=== PATIENT | male | born 1990 | race African-American/Black ===

== ENCOUNTER 2016-10-21 10:05 | Inpatient (IN) | payer OTHER ==
[~2016-10-21] VITALS: Ht 172.7 cm; Wt 71.6 kg
[~2016-10-21 10:05] MED LIST: AMLODIPINE BESY10 MG PO; AMLODIPINE BESYL5 MG PO; ATENOLOL25 MG PO; BUPROPION XL150 MG PO; COUMADIN,JANTOVE5 MG PO; COUMADIN1 MG PO; DILAUDID4 MG PO; DOCUSATE SODIU100 MG PO; ENDOCET 5-3251 EACH PO; FOLIC ACID1 MG PO; HYDROMORPHONE HC2 MG PO; KEFLEX500 MG PO; LISINOPRIL20 MG PO; LOPRESSOR25 MG PO; LOPRESSOR50 MG PO; METOPROLOL TART25 MG; MORPHINE SULFAT15 M1 PO; MS CONTIN,ORAMO60 MG PO; NIFEDIPINE ER60 MG PO; NOHOMEMEDS; NORVASC2.5 MG PO; OLANZAPINE10 MG PO; OXYCONTIN10 MG PO; PANTOPRAZOLE SO40 MG PO; PEPCID20 MG PO; PERCOCET 5/31 TABLET PO; QUETIAPINE FUMA50 MG PO; SEROQUEL50 MG PO; SERTRALINE HCL25 MG PO; SERTRALINE HCL50 MG PO; TOPROL XL200 MG PO; Thiamine,Vitamin B1 PO; VANCOCIN HCL125 MG PO; ZANTAC150 MG PO; ZOFRAN4 MG PO
[2016-10-21 10:55] LABS: MCH 27.8 PG (29.0-34.0); MCHC 36.5 G/DL (30.0-36.0); MCV 76.1 FL (86-99); MEAN PLAT.VOLUME 8.8 uM^3 (9.0-12.4); PLATELET COUNT 269 K/uL (156-360); RBC DIS.WIDTH-CV 14.4 % (11.8-14.6); RBC DIS.WIDTH-SD 39.1 % (39-53); RED BLOOD COUNT 5.65 M/uL (4.00-5.50); WHITE BLOOD COUNT 8.2 K/uL (4.1-10.2)
[2016-10-21 11:05] LABS: CHLORIDE 102 mEq/L (99-109); POTASSIUM 4.3 mEq/L (3.7-5.4); SODIUM 137 mEq/L (136-147)
[2016-10-21 11:07] LABS: GLUCOSE 204 mg/dL (70-99)
[2016-10-21 11:08] LABS: ANION GAP 16 MEQ/L (2-14)
[2016-10-21 11:11] LABS: ALKALINE PHOSPHATASE 73 IU/L (3-129); GFR ESTIMATE (CALCULATED) > 59 mL/min/; TOTAL BILIRUBIN 0.9 mg/dL (0.0-1.0)
[2016-10-21 11:12] LABS: UREA NITROGEN (BUN) 15 mg/dL (9-23)
[2016-10-21 11:23] LABS: SERUM ETHYL ALCOHOL 49 mg/dL
[2016-10-21 11:26] LABS: LIPASE 282 U/L (1.0-51.0)
[2016-10-21 13:40] LABS: ADD MIUA? NO; BILIRUBIN NEGATIVE; BLOOD NEGATIVE; COLOR YELLOW ((YELLOW)); GLUCOSE (STRIP) NEGATIVE; KETONES NEGATIVE; LEUKOCYTES NEGATIVE; NITRITE NEGATIVE; PH, URINE 5.5 (5-8); PROTEIN (STRIP) NEGATIVE; SPECIFIC GRAVITY 1.022 (1.000-1.030); UCUL ADDED? NO; UROBILINOGEN 0.2 MG/DL (0.2-1.0)
[2016-10-21] MEDS ORDERED: SEROQUEL100 MG PO (14:17)
[2016-10-21] MEDS ORDERED: ZOLOFT100 MG PO (14:17)
[2016-10-21] MEDS ORDERED: NORVASC10 MG PO (14:17)
[2016-10-21] MEDS ORDERED: ERGOCALCIF50000 UNIT PO (14:18)
[2016-10-21 15:56] VITALS: BP 158/93
[2016-10-21 20:00] VITALS: BP 168/96
[2016-10-21 21:20] LABS: POINT-OF-CARE METER ID UU14162513
[2016-10-21 23:38] VITALS: BP 179/112
[2016-10-22] VITALS (7 sets, daily range): BP systolic 129–162; BP diastolic 83–102
[2016-10-22 05:34] LABS: POINT-OF-CARE METER ID UU14162513
[2016-10-22 06:28] LABS: HEMATOCRIT 41.4 % (38.0-50.0); MCH 27.1 PG (29.0-34.0); MCHC 33.8 G/DL (30.0-36.0); RBC DIS.WIDTH-CV 14.5 % (11.8-14.6); RBC DIS.WIDTH-SD 42.2 % (39-53); RED BLOOD COUNT 5.17 M/uL (4.00-5.50)
[2016-10-22 06:30] LABS: MCV 80.1 FL (86-99); WHITE BLOOD COUNT 11.6 K/uL (4.1-10.2)
[2016-10-22 06:37] LABS: ALKALINE PHOSPHATASE 67 IU/L (3-129); ANION GAP 7 MEQ/L (2-14); CHLORIDE 101 MEQ/L (99-109); GFR ESTIMATE (CALCULATED) > 59 mL/min/; LIPASE 290 U/L (1.0-51.0); POTASSIUM 3.6 MEQ/L (3.7-5.4); SAMPLE HEMOLYSIS CHECK 0; SAMPLE ICTERIC CHECK 0; SAMPLE LIPEMIA CHECK 0; SODIUM 133 MEQ/L (136-147); TOTAL BILIRUBIN 1.4 MG/DL (0.0-1.0); UREA NITROGEN (BUN) 8 mg/dL (9-23)
[2016-10-22 06:41] LABS: GLUCOSE 114 mg/dL (70-99)
[2016-10-22 07:03] LABS: EOSINOPHIL (%) 1.5 % (0-5); EOSINOPHIL COUNT 0.2 K/uL (0-0.3); IMMATURE GRANULOCYTE (%) 0.2 % (0.0-0.7); LYMPHOCYTE COUNT 2.2 K/uL (1.0-2.8); MEAN PLAT.VOLUME 9.2 uM^3 (9.0-12.4); MONOCYTE (%) 8.7 % (3-12); NEUTROPHIL (%) 70.3 % (45-76); NEUTROPHIL COUNT 8.2 K/uL (1.8-6.4); PLATELET COUNT 214 K/uL (156-360)
[2016-10-22 08:01] LABS: AMPHETAMINES QUANT VALUE 0 NG/ML; BARBITUATES QUANT VALUE 0 NG/ML; BENZODIAZEPINES QUANT VALUE 0 NG/ML; BENZODIAZEPINES, URINE SCREEN Negative (200 ng/mL); MARIJUANA QUANT VALUE 0 NG/ML; PHENCYCLIDINE QUANT VALUE 0 NG/ML
[2016-10-22 12:00] LABS: POINT-OF-CARE METER ID UU13113831
[2016-10-22 17:37] LABS: POINT-OF-CARE METER ID UU14162513
[2016-10-22 23:31] LABS: POINT-OF-CARE USER ID STWHLR41
[2016-10-23 03:03] VITALS: BP 120/64
[2016-10-23 06:44] LABS: ANION GAP 9 MEQ/L (2-14); CHLORIDE 101 MEQ/L (99-109); GFR ESTIMATE (CALCULATED) > 59 mL/min/; LIPASE 152 U/L (1.0-51.0); POTASSIUM 3.6 MEQ/L (3.7-5.4); SAMPLE HEMOLYSIS CHECK 0; SAMPLE ICTERIC CHECK 0; SAMPLE LIPEMIA CHECK 0; SODIUM 135 MEQ/L (136-147); UREA NITROGEN (BUN) 12 mg/dL (9-23)
[2016-10-23 06:48] LABS: GLUCOSE 68 mg/dL (70-99)
[2016-10-23 07:30] VITALS: BP 138/78
[2016-10-23 07:52] LABS: MCH 26.8 PG (29.0-34.0); MCHC 33.5 G/DL (30.0-36.0); MCV 80.1 FL (86-99); MEAN PLAT.VOLUME 9.4 uM^3 (9.0-12.4); PLATELET COUNT 186 K/uL (156-360); RBC DIS.WIDTH-CV 14.3 % (11.8-14.6); RBC DIS.WIDTH-SD 41.4 % (39-53); RED BLOOD COUNT 4.62 M/uL (4.00-5.50)
[2016-10-23 07:58] LABS: WHITE BLOOD COUNT 7.6 K/uL (4.1-10.2)
[2016-10-23 11:46] VITALS: BP 136/94
[2016-10-23 16:26] VITALS: BP 130/91
[2016-10-23 20:00] VITALS: BP 146/88
[2016-10-23 22:10] LABS: POINT-OF-CARE METER ID UU14149397
[2016-10-24] VITALS: BP 144/80
[2016-10-24 04:00] VITALS: BP 119/73
[2016-10-24 04:33] LABS: EOSINOPHIL (%) 4.5 % (0-5); EOSINOPHIL COUNT 0.3 K/uL (0-0.3); HEMATOCRIT 33.1 % (38.0-50.0); IMMATURE GRANULOCYTE (%) 0.9 % (0.0-0.7); IMMATURE GRANULOCYTE COUNT 0.5 K/uL; LYMPHOCYTE COUNT 2.1 K/uL (1.0-2.8); MCH 27.2 PG (29.0-34.0); MCHC 34.4 G/DL (30.0-36.0); MEAN PLAT.VOLUME 8.6 uM^3 (9.0-12.4); MONOCYTE (%) 9.8 % (3-12); MONOCYTE COUNT 0.6 K/uL (0-0.8); NEUTROPHIL (%) 47.7 % (45-76); NEUTROPHIL COUNT 2.7 K/uL (1.8-6.4); PLATELET COUNT 184 K/uL (156-360); RBC DIS.WIDTH-CV 13.9 % (11.8-14.6); RBC DIS.WIDTH-SD 38.8 % (39-53); RED BLOOD COUNT 4.19 M/uL (4.00-5.50); WHITE BLOOD COUNT 5.6 K/uL (4.1-10.2)
[2016-10-24 04:42] LABS: CHLORIDE 104 mEq/L (99-109); POTASSIUM 3.6 mEq/L (3.7-5.4); SODIUM 138 mEq/L (136-147)
[2016-10-24 04:45] LABS: ANION GAP 5 MEQ/L (2-14)
[2016-10-24 04:47] LABS: ALKALINE PHOSPHATASE 60 IU/L (3-129)
[2016-10-24 04:48] LABS: GFR ESTIMATE (CALCULATED) > 59 mL/min/
[2016-10-24 04:49] LABS: UREA NITROGEN (BUN) 6 mg/dL (9-23)
[2016-10-24 04:51] LABS: LIPASE 160 U/L (1.0-51.0)
[2016-10-24 04:52] LABS: GLUCOSE 137 mg/dL (70-99); TOTAL BILIRUBIN 0.4 mg/dL (0.0-1.0)
[2016-10-24 07:46] VITALS: BP 126/74
[2016-10-24 12:28] VITALS: BP 155/94
[2016-10-24 17:19] VITALS: BP 134/85
[2016-10-24 20:06] VITALS: BP 136/86
[2016-10-25 00:15] VITALS: BP 125/72
[2016-10-25 04:47] VITALS: BP 132/83
[2016-10-25 06:41] LABS: ANION GAP 6 MEQ/L (2-14); CHLORIDE 102 MEQ/L (99-109); GFR ESTIMATE (CALCULATED) > 59 mL/min/; GLUCOSE 105 mg/dL (70-99); LIPASE 87 U/L (1.0-51.0); POTASSIUM 3.9 MEQ/L (3.7-5.4); SAMPLE HEMOLYSIS CHECK 0; SAMPLE ICTERIC CHECK 0; SAMPLE LIPEMIA CHECK 0; SODIUM 138 MEQ/L (136-147); UREA NITROGEN (BUN) 3 mg/dL (9-23)
[2016-10-25 08:18] VITALS: BP 159/93
[2016-10-25 11:46] VITALS: BP 129/81
[2016-10-25 16:15] VITALS: BP 135/96
[2016-10-25 20:04] VITALS: BP 145/96
[2016-10-26 00:18] VITALS: BP 140/92
[2016-10-26 04:18] VITALS: BP 132/84
[2016-10-26 07:59] VITALS: BP 124/71
[2016-10-26] MEDS ORDERED: PERCOCET 5/31 TABLET PO (09:11)
[2016-10-26 09:24] VITALS: BP 118/72
== END 2016-10-26 11:25 | disposition home or self-care (01) | DRG 440 ==
LOC: EME 10:05 → 5WEST 14:10 → EDOF 14:10 → 5WEST 15:36 → 3EAST 10-22 14:46 → 5WEST 10-22 14:46 → 3EAST 10-22 18:11
PROVIDERS: Hospitalist; Internal Medicine; Physician Assistant; Physician Assistant Medical
DX: K85.20 Alcohol induced acute pancreatitis without necrosis or infection (principal); F10.229 Alcohol dependence with intoxication, unspecified; Y90.2 Blood alcohol level of 40-59 mg/100 ml; I10 Essential (primary) hypertension; F32.9 Major depressive disorder, single episode, unspecified; F17.210 Nicotine dependence, cigarettes, uncomplicated; R73.9 Hyperglycemia, unspecified; F41.9 Anxiety disorder, unspecified
CPT/HCPCS: 74176; 80048; 80053; 81003; 82948; 83690; 85025; 85027; 99281; 99285; C9113; G0378; G0480; J0360; J1170; J1650; J1815; J1885; J2405; J2765; J3411; J7030; S0028

== ENCOUNTER 2017-01-21 13:56 | Inpatient (IN) | payer OTHER ==
[~2017-01-21] VITALS: Ht 172.7 cm; Wt 78.7 kg
[~2017-01-21 13:56] MED LIST changes: +ERGOCALCIF50000 UNIT PO; +NORVASC10 MG PO; +OXYCODONE HCL5 MG PO; +SEROQUEL100 MG PO; +ZOLOFT100 MG PO; +ZOLOFT50 MG PO
[2017-01-21 14:41] LABS: HEMATOCRIT 44.4 % (38.0-50.0); MCH 27.1 PG (29.0-34.0); MCHC 35.1 G/DL (30.0-36.0); MCV 77.1 FL (86-99); MEAN PLAT.VOLUME 8.3 uM^3 (9.0-12.4); PLATELET COUNT 402 K/uL (156-360); RBC DIS.WIDTH-CV 14.4 % (11.8-14.6); RBC DIS.WIDTH-SD 39.5 % (39-53); RED BLOOD COUNT 5.76 M/uL (4.00-5.50); WHITE BLOOD COUNT 7.8 K/uL (4.1-10.2)
[2017-01-21 14:56] LABS: CHLORIDE 105 mEq/L (99-109)
[2017-01-21 14:57] LABS: POTASSIUM 4.7 mEq/L (3.7-5.4); SODIUM 137 mEq/L (136-147)
[2017-01-21 14:59] LABS: GLUCOSE 105 mg/dL (70-99)
[2017-01-21 15:00] LABS: ANION GAP 16 MEQ/L (2-14)
[2017-01-21 15:01] LABS: TOTAL BILIRUBIN 0.6 mg/dL (0.0-1.0)
[2017-01-21 15:02] LABS: ALKALINE PHOSPHATASE 118 IU/L (3-129)
[2017-01-21 15:03] LABS: GFR ESTIMATE (CALCULATED) > 59 mL/min/
[2017-01-21 15:04] LABS: UREA NITROGEN (BUN) 14 mg/dL (9-23)
[2017-01-21 15:06] LABS: LIPASE 101 U/L (1.0-51.0)
[2017-01-21 16:37] LABS: ADD MIUA? YES; BILIRUBIN NEGATIVE; BLOOD NEGATIVE; COLOR YELLOW ((YELLOW)); GLUCOSE (STRIP) NEGATIVE; KETONES 5; LEUKOCYTES NEGATIVE; NITRITE NEGATIVE; PROTEIN (STRIP) 30; SPECIFIC GRAVITY 1.016 (1.000-1.030); UROBILINOGEN 0.2 MG/DL (0.2-1.0)
[2017-01-21 16:54] LABS: BACTERIA RARE /HPF; EPITHELIAL CELLS RARE /HPF; MUCUS TRACE /LPF; RED BLOOD CELLS 0-5 /HPF (0-5); UCUL ADDED? NO; WHITE BLOOD CELLS 0-5 /HPF (0-5)
[2017-01-21 23:33] VITALS: BP 167/103
[2017-01-22 07:01] LABS: ALKALINE PHOSPHATASE 104 IU/L (3-129); ANION GAP 16 MEQ/L (2-14); CHLORIDE 98 MEQ/L (99-109); GFR ESTIMATE (CALCULATED) > 59 mL/min/; GLUCOSE 90 mg/dL (70-99); POTASSIUM 4.3 MEQ/L (3.7-5.4); SAMPLE HEMOLYSIS CHECK 0; SAMPLE ICTERIC CHECK 0; SAMPLE LIPEMIA CHECK 0; SODIUM 133 MEQ/L (136-147); TOTAL BILIRUBIN 1.5 MG/DL (0.0-1.0); UREA NITROGEN (BUN) 9 mg/dL (9-23)
[2017-01-22 07:13] VITALS: BP 166/104
[2017-01-22 07:41] LABS: LIPASE 297 U/L (1.0-51.0)
[2017-01-22 11:46] VITALS: BP 155/93
[2017-01-22 16:00] VITALS: BP 135/83
[2017-01-22 23:25] VITALS: BP 137/96
[2017-01-23 07:18] LABS: ALKALINE PHOSPHATASE 83 IU/L (3-129); ANION GAP 11 MEQ/L (2-14); CHLORIDE 99 MEQ/L (99-109); GFR ESTIMATE (CALCULATED) > 59 mL/min/; GLUCOSE 106 mg/dL (70-99); POTASSIUM 3.9 MEQ/L (3.7-5.4); SAMPLE HEMOLYSIS CHECK 0; SAMPLE ICTERIC CHECK 0; SAMPLE LIPEMIA CHECK 0; SODIUM 132 MEQ/L (136-147); TOTAL BILIRUBIN 1.3 MG/DL (0.0-1.0); UREA NITROGEN (BUN) 9 mg/dL (9-23)
[2017-01-23 09:49] VITALS: BP 128/65
[2017-01-23 13:34] VITALS: BP 117/67
[2017-01-23 16:16] VITALS: BP 137/84
[2017-01-23 23:26] VITALS: BP 150/95
[2017-01-24 06:41] LABS: ALKALINE PHOSPHATASE 85 IU/L (3-129); ANION GAP 8 MEQ/L (2-14); CHLORIDE 103 MEQ/L (99-109); GFR ESTIMATE (CALCULATED) > 59 mL/min/; GLUCOSE 134 mg/dL (70-99); LIPASE 84 U/L (1.0-51.0); SAMPLE HEMOLYSIS CHECK 0; SAMPLE ICTERIC CHECK 0; SAMPLE LIPEMIA CHECK 0; UREA NITROGEN (BUN) 5 mg/dL (9-23)
[2017-01-24 06:43] LABS: SODIUM 139 MEQ/L (136-147); TOTAL BILIRUBIN 0.6 MG/DL (0.0-1.0)
[2017-01-24 06:54] VITALS: BP 168/82
[2017-01-24 14:53] VITALS: BP 138/88
[2017-01-24 23:50] VITALS: BP 115/72
[2017-01-25 07:20] VITALS: BP 123/77
[2017-01-25 07:21] LABS: ALKALINE PHOSPHATASE 76 IU/L (3-129); ANION GAP 8 MEQ/L (2-14); CHLORIDE 105 MEQ/L (99-109); GFR ESTIMATE (CALCULATED) > 59 mL/min/; GLUCOSE 115 mg/dL (70-99); LIPASE 77 U/L (1.0-51.0); POTASSIUM 3.8 MEQ/L (3.7-5.4); SAMPLE HEMOLYSIS CHECK 0; SAMPLE ICTERIC CHECK 0; SAMPLE LIPEMIA CHECK 0; SODIUM 140 MEQ/L (136-147); TOTAL BILIRUBIN 0.5 MG/DL (0.0-1.0); UREA NITROGEN (BUN) 3 mg/dL (9-23)
[2017-01-25 11:00] VITALS: BP 134/79
[2017-01-26 00:02] VITALS: BP 123/75
[2017-01-26 07:09] LABS: EOSINOPHIL (%) 9.5 % (0-5); EOSINOPHIL COUNT 0.5 K/uL (0-0.3); IMMATURE GRANULOCYTE (%) 0.2 % (0.0-0.7); INSTRUMENT ABS NEUTROPHIL CT 1.4 K/uL; LYMPHOCYTE COUNT 2.5 K/uL (1.0-2.8); MCH 27.2 PG (29.0-34.0); MCHC 33.1 G/DL (30.0-36.0); MONOCYTE (%) 10.9 % (3-12); MONOCYTE COUNT 0.5 K/uL (0-0.8); NEUTROPHIL COUNT 1.4 K/uL (1.8-6.4); RBC DIS.WIDTH-CV 14.5 % (11.8-14.6); RED BLOOD COUNT 4.27 M/uL (4.00-5.50); WHITE BLOOD COUNT 4.9 K/uL (4.1-10.2)
[2017-01-26 07:17] LABS: ALKALINE PHOSPHATASE 77 IU/L (3-129); ANION GAP 7 MEQ/L (2-14); CHLORIDE 107 MEQ/L (99-109); GFR ESTIMATE (CALCULATED) > 59 mL/min/; GLUCOSE 126 mg/dL (70-99); LIPASE 83 U/L (1.0-51.0); POTASSIUM 4.2 MEQ/L (3.7-5.4); SAMPLE HEMOLYSIS CHECK 0; SAMPLE ICTERIC CHECK 0; SAMPLE LIPEMIA CHECK 0; SODIUM 142 MEQ/L (136-147); TOTAL BILIRUBIN 0.4 MG/DL (0.0-1.0); UREA NITROGEN (BUN) 4 mg/dL (9-23)
[2017-01-26 07:26] LABS: ANISOCYTOSIS 1+; MACROCYTES 1+; MEAN PLAT.VOLUME 9.3 uM^3 (9.0-12.4); PLAT.SUFFICIENCY ADEQUATE; PLATELET CLUMPS PRESENT - PLATELET COUNT APPEARS ADQ.
[2017-01-26 07:38] VITALS: BP 134/92
[2017-01-26 16:18] VITALS: BP 126/69
[2017-01-26 22:54] VITALS: BP 162/90
[2017-01-27 08:24] VITALS: BP 130/82
[2017-01-27] MEDS ORDERED: DILAUDID2 MG PO (12:28)
[2017-01-27] MEDS ORDERED: FOLIC ACID1 MG PO (12:28)
[2017-01-27] MEDS ORDERED: ZOFRAN4 MG PO (12:28)
[2017-01-27] MEDS ORDERED: Thiamine,Vitamin B1 PO (12:28)
== END 2017-01-27 13:25 | disposition home or self-care (01) | DRG 440 ==
LOC: EME 13:56 → 5EAST 22:31 → EDOF 22:31 → 5EAST 23:25
PROVIDERS: Internal Medicine
DX: K85.20 Alcohol induced acute pancreatitis without necrosis or infection (principal); K70.10 Alcoholic hepatitis without ascites; I10 Essential (primary) hypertension; F32.9 Major depressive disorder, single episode, unspecified; F10.10 Alcohol abuse, uncomplicated; K76.0 Fatty (change of) liver, not elsewhere classified
CPT/HCPCS: 74177; 80053; 81003; 83690; 85025; 85027; 99281; 99285; J1170; J1644; J2270; J2405; J3411; J7030; J7050

== ENCOUNTER 2017-02-10 00:37 | Inpatient (IN) | payer OTHER ==
[~2017-02-10] VITALS: Ht 172.7 cm; Wt 79.8 kg
[~2017-02-10 00:37] MED LIST changes: +DILAUDID2 MG PO
[2017-02-10 01:41] LABS: CHLORIDE 108 mEq/L (99-109); POTASSIUM 3.5 mEq/L (3.7-5.4); SODIUM 142 mEq/L (136-147)
[2017-02-10 01:43] LABS: GLUCOSE 84 mg/dL (70-99)
[2017-02-10 01:44] LABS: ANION GAP 13 MEQ/L (2-14)
[2017-02-10 01:45] LABS: TOTAL BILIRUBIN 0.2 mg/dL (0.0-1.0)
[2017-02-10 01:46] LABS: SERUM ETHYL ALCOHOL 169 mg/dL
[2017-02-10 01:47] LABS: ALKALINE PHOSPHATASE 74 IU/L (3-129); GFR ESTIMATE (CALCULATED) > 59 mL/min/
[2017-02-10 01:48] LABS: UREA NITROGEN (BUN) 8 mg/dL (9-23)
[2017-02-10 01:50] LABS: LIPASE 38 U/L (1.0-51.0)
[2017-02-10 01:56] LABS: TROP-I INTERPRETATION NEGATIVE; TROPONIN-I < 0.01 ng/mL (0.0-0.30)
[2017-02-10 02:01] LABS: PROTHROMBIN TIME 10.3 (9.2-11.2); PTT 25.6 (25-32)
[2017-02-10 02:43] LABS: HEMATOCRIT 31.2 % (38.0-50.0); MCH 27.4 PG (29.0-34.0); MCHC 34.3 G/DL (30.0-36.0); MEAN PLAT.VOLUME 8.8 uM^3 (9.0-12.4); PLAT.SUFFICIENCY ADEQUATE; RBC DIS.WIDTH-CV 15.2 % (11.8-14.6); RBC DIS.WIDTH-SD 42.9 % (39-53)
[2017-02-10 02:49] LABS: PLATELET COUNT 180 K/uL (156-360); WHITE BLOOD COUNT 9.6 K/uL (4.1-10.2)
[2017-02-10 07:22] LABS: EOSINOPHIL (%) 2.2 % (0-5); EOSINOPHIL COUNT 0.2 K/uL (0-0.3); HEMATOCRIT 30.7 % (38.0-50.0); IMMATURE GRANULOCYTE (%) 0.6 % (0.0-0.7); IMMATURE GRANULOCYTE COUNT 0.1 K/uL; LYMPHOCYTE COUNT 3.9 K/uL (1.0-2.8); MCH 27.7 PG (29.0-34.0); MCHC 33.9 G/DL (30.0-36.0); MCV 81.6 FL (86-99); MONOCYTE (%) 6.1 % (3-12); MONOCYTE COUNT 0.6 K/uL (0-0.8); NEUTROPHIL (%) 51.3 % (45-76); PLATELET COUNT 186 K/uL (156-360); RBC DIS.WIDTH-CV 15.6 % (11.8-14.6); RBC DIS.WIDTH-SD 44.3 % (39-53); RED BLOOD COUNT 3.76 M/uL (4.00-5.50); WHITE BLOOD COUNT 9.7 K/uL (4.1-10.2)
[2017-02-10 08:15] LABS: ALKALINE PHOSPHATASE 73 IU/L (3-129); ANION GAP 12 MEQ/L (2-14); CHLORIDE 109 MEQ/L (99-109); GFR ESTIMATE (CALCULATED) > 59 mL/min/; GLUCOSE 81 mg/dL (70-99); POTASSIUM 3.5 MEQ/L (3.7-5.4); SAMPLE HEMOLYSIS CHECK 0; SAMPLE ICTERIC CHECK 0; SAMPLE LIPEMIA CHECK 1; SODIUM 141 MEQ/L (136-147); TOTAL BILIRUBIN 0.2 MG/DL (0.0-1.0); UREA NITROGEN (BUN) 6 mg/dL (9-23)
[2017-02-10 08:43] VITALS: BP 141/86
[2017-02-10 15:04] VITALS: BP 150/80
[2017-02-10] MEDS ORDERED: FOLIC ACID1 MG PO (16:22)
[2017-02-10] MEDS ORDERED: OXAYDO5 MG PO (16:23)
[2017-02-10] MEDS ORDERED: PROTONIX40 MG PO (16:23)
[2017-02-10] MEDS ORDERED: ERGOCALCIF50000 UNIT PO (16:24)
[2017-02-10 16:44] LABS: AMPHETAMINES QUANT VALUE 0 NG/ML; BARBITUATES QUANT VALUE 0 NG/ML; BENZODIAZEPINES, URINE SCREEN POSITIVE (200 ng/mL); MARIJUANA QUANT VALUE 0 NG/ML
[2017-02-10 19:41] VITALS: BP 150/100
[2017-02-10 20:40] VITALS: BP 162/82
[2017-02-10 23:40] VITALS: BP 140/100
[2017-02-11] VITALS (7 sets, daily range): BP systolic 116–142; BP diastolic 68–90
[2017-02-11 06:12] LABS: HEMATOCRIT 35.5 % (38.0-50.0); MCHC 32.4 G/DL (30.0-36.0); MCV 83.3 FL (86-99); MEAN PLAT.VOLUME 9.2 uM^3 (9.0-12.4); PLATELET COUNT 209 K/uL (156-360); RBC DIS.WIDTH-CV 15.9 % (11.8-14.6); RBC DIS.WIDTH-SD 45.8 % (39-53); RED BLOOD COUNT 4.26 M/uL (4.00-5.50)
[2017-02-11 06:14] LABS: WHITE BLOOD COUNT 6.5 K/uL (4.1-10.2)
[2017-02-11 08:17] LABS: ALKALINE PHOSPHATASE 73 IU/L (3-129); ANION GAP 10 MEQ/L (2-14); CHLORIDE 103 MEQ/L (99-109); DIRECT BILIRUBIN 0.1 mg/dL (0.0-0.3); FERRITIN 837 NG/ML (22-322); GFR ESTIMATE (CALCULATED) > 59 mL/min/; GLUCOSE 67 mg/dL (70-99); IRON 154 MCG/DL (35-150); POTASSIUM 3.6 MEQ/L (3.7-5.4); SAMPLE HEMOLYSIS CHECK 0; SAMPLE ICTERIC CHECK 0; SAMPLE LIPEMIA CHECK 0; SODIUM 141 MEQ/L (136-147); UREA NITROGEN (BUN) 5 mg/dL (9-23)
[2017-02-11 08:22] LABS: TOTAL BILIRUBIN 0.6 MG/DL (0.0-1.0)
[2017-02-12 04:56] VITALS: BP 112/65
[2017-02-12 05:55] LABS: ALKALINE PHOSPHATASE 70 IU/L (3-129); ANION GAP 10 MEQ/L (2-14); CHLORIDE 103 MEQ/L (99-109); GFR ESTIMATE (CALCULATED) > 59 mL/min/; POTASSIUM 3.9 MEQ/L (3.7-5.4); SAMPLE HEMOLYSIS CHECK 0; SAMPLE ICTERIC CHECK 0; SAMPLE LIPEMIA CHECK 0; SODIUM 138 MEQ/L (136-147); TOTAL BILIRUBIN 0.5 MG/DL (0.0-1.0); UREA NITROGEN (BUN) 6 mg/dL (9-23)
[2017-02-12 05:57] LABS: GLUCOSE 101 mg/dL (70-99)
[2017-02-12 08:23] VITALS: BP 126/80
[2017-02-12 11:37] VITALS: BP 131/79
[2017-02-12 15:20] VITALS: BP 123/65
[2017-02-12 20:23] VITALS: BP 158/82
[2017-02-12 23:35] VITALS: BP 124/80
[2017-02-13 03:24] VITALS: BP 120/68
[2017-02-13 08:27] VITALS: BP 98/56
[2017-02-13 10:47] LABS: HEMATOCRIT 35.5 % (38.0-50.0); MCH 27.4 PG (29.0-34.0); MCHC 33.2 G/DL (30.0-36.0); MCV 82.4 FL (86-99); PLATELET COUNT 261 K/uL (156-360); RBC DIS.WIDTH-SD 47.4 % (39-53); RED BLOOD COUNT 4.31 M/uL (4.00-5.50)
[2017-02-13 10:48] LABS: WHITE BLOOD COUNT 4.4 K/uL (4.1-10.2)
[2017-02-13 10:57] LABS: CHLORIDE 106 mEq/L (99-109); POTASSIUM 3.9 mEq/L (3.7-5.4); SODIUM 141 mEq/L (136-147)
[2017-02-13 11:00] LABS: GLUCOSE 121 mg/dL (70-99)
[2017-02-13 11:01] LABS: ANION GAP 11 MEQ/L (2-14)
[2017-02-13 11:03] LABS: ALKALINE PHOSPHATASE 71 IU/L (3-129); GFR ESTIMATE (CALCULATED) > 59 mL/min/; TOTAL BILIRUBIN 0.3 mg/dL (0.0-1.0)
[2017-02-13 11:05] LABS: DIRECT BILIRUBIN 0.1 mg/dL (0.0-0.3); UREA NITROGEN (BUN) 7 mg/dL (9-23)
[2017-02-13 12:10] VITALS: BP 116/64
[2017-02-13 16:10] VITALS: BP 134/95
[2017-02-13 19:42] VITALS: BP 131/82
[2017-02-13 23:14] VITALS: BP 125/62
[2017-02-14 04:27] VITALS: BP 120/68
[2017-02-14 06:52] LABS: ALKALINE PHOSPHATASE 61 IU/L (3-129); ANION GAP 9 MEQ/L (2-14); CHLORIDE 105 MEQ/L (99-109); GFR ESTIMATE (CALCULATED) > 59 mL/min/; GLUCOSE 110 mg/dL (70-99); POTASSIUM 3.2 MEQ/L (3.7-5.4); SAMPLE HEMOLYSIS CHECK 0; SAMPLE ICTERIC CHECK 0; SAMPLE LIPEMIA CHECK 0; SODIUM 140 MEQ/L (136-147); TOTAL BILIRUBIN 0.5 MG/DL (0.0-1.0); UREA NITROGEN (BUN) 5 mg/dL (9-23)
[2017-02-14 08:07] VITALS: BP 125/69
[2017-02-14 09:56] LABS: HBSG INDEX 0.23; HPCA INDEX 0.13
[2017-02-14 09:58] LABS: ANTI-HEPATITIS A VIRUS (IGM) Nonreactive; ANTI-HEPATITIS B CORE (IGM) Nonreactive; HAV INDEX 0.12; HBC IgM INDEX 0.05
[2017-02-14 11:32] VITALS: BP 118/77
[2017-02-14 15:48] VITALS: BP 122/87
[2017-02-14 19:57] VITALS: BP 129/60
[2017-02-14 23:50] VITALS: BP 113/53
[2017-02-15 03:42] VITALS: BP 107/58
[2017-02-15 07:54] VITALS: BP 113/57
[2017-02-15 07:59] LABS: EOSINOPHIL (%) 4.7 % (0-5); EOSINOPHIL COUNT 0.3 K/uL (0-0.3); HEMATOCRIT 35.3 % (38.0-50.0); IMMATURE GRANULOCYTE (%) 0.5 % (0.0-0.7); INSTRUMENT ABS NEUTROPHIL CT 1.9 K/uL; LYMPHOCYTE COUNT 2.9 K/uL (1.0-2.8); MCH 27.1 PG (29.0-34.0); MCV 84.7 FL (86-99); MEAN PLAT.VOLUME 9.3 uM^3 (9.0-12.4); MONOCYTE (%) 13.6 % (3-12); MONOCYTE COUNT 0.8 K/uL (0-0.8); NEUTROPHIL (%) 31.7 % (45-76); NEUTROPHIL COUNT 1.9 K/uL (1.8-6.4); PLATELET COUNT 278 K/uL (156-360); RBC DIS.WIDTH-CV 16.5 % (11.8-14.6); RBC DIS.WIDTH-SD 50.2 % (39-53); RED BLOOD COUNT 4.17 M/uL (4.00-5.50)
[2017-02-15 08:29] LABS: ALKALINE PHOSPHATASE 60 IU/L (3-129); ANION GAP 7 MEQ/L (2-14); CHLORIDE 107 MEQ/L (99-109); GFR ESTIMATE (CALCULATED) > 59 mL/min/; MAGNESIUM 1.8 mg/dl (1.3-2.7); SAMPLE HEMOLYSIS CHECK 0; SAMPLE ICTERIC CHECK 0; SAMPLE LIPEMIA CHECK 0; SODIUM 142 MEQ/L (136-147); TOTAL BILIRUBIN 0.5 MG/DL (0.0-1.0); UREA NITROGEN (BUN) 4 mg/dL (9-23)
[2017-02-15 08:31] LABS: GLUCOSE 81 mg/dL (70-99); POTASSIUM 4.2 MEQ/L (3.7-5.4)
[2017-02-15 11:07] VITALS: BP 120/79
[2017-02-15 16:05] VITALS: BP 129/82
[2017-02-15 20:27] VITALS: BP 119/68
[2017-02-15 23:58] VITALS: BP 122/60
[2017-02-16 04:46] VITALS: BP 106/56
[2017-02-16 07:15] VITALS: BP 107/61
[2017-02-16 11:16] VITALS: BP 113/59
[2017-02-16 16:00] VITALS: BP 120/74
[2017-02-16 20:19] VITALS: BP 137/85
[2017-02-17 00:07] VITALS: BP 121/70
[2017-02-17 05:11] VITALS: BP 118/56
[2017-02-17 07:45] VITALS: BP 128/76
[2017-02-17] MEDS ORDERED: NICOTINE PATCH1 EAC2 TD (10:02)
[2017-02-17] MEDS ORDERED: POLYETHYLENE GL17 GM PO (10:02)
[2017-02-17] MEDS ORDERED: DOCUSATE SODIU100 MG PO (10:02)
[2017-02-17] MEDS ORDERED: Thiamine,Vitamin B1 PO (10:02)
[2017-02-17 11:00] VITALS: BP 146/92
== END 2017-02-17 14:10 | DRG 432 ==
LOC: EME → EDBD 00:37 → EME 00:37 → EDOF 05:42 → 3EAST 05:42 → EDOF 08:17 → 3EAST 08:21
PROVIDERS: Emergency Medicine; Internal Medicine; Nurse Practitioner Adult Health; Physician Assistant; Specialist
DX: K70.10 Alcoholic hepatitis without ascites (principal); F10.239 Alcohol dependence with withdrawal, unspecified; K85.20 Alcohol induced acute pancreatitis without necrosis or infection; F33.9 Major depressive disorder, recurrent, unspecified; F11.20 Opioid dependence, uncomplicated; K76.0 Fatty (change of) liver, not elsewhere classified; I10 Essential (primary) hypertension; D50.9 Iron deficiency anemia, unspecified; F17.210 Nicotine dependence, cigarettes, uncomplicated; E87.6 Hypokalemia; Z91.19 Patient's noncompliance with other medical treatment and regimen; K86.1 Other chronic pancreatitis; F12.10 Cannabis abuse, uncomplicated; Y90.6 Blood alcohol level of 120-199 mg/100 ml; K42.9 Umbilical hernia without obstruction or gangrene; Z65.3 Problems related to other legal circumstances; K59.00 Constipation, unspecified
CPT/HCPCS: 74177; 76705; 80048; 80053; 80074; 80076; 80306 90; 82140; 82607; 82728; 82746; 83540; 83605; 83690; 83735; 84466; 84484; 85025; 85027; 85610; 85730; 86870; 86900; 86901; 86905; 86920; 99281; 99285; C9113; G0480; J1170; J1644; J2270; J2405; J3411; J3475; J3480; J7030; J7120; S0028

== ENCOUNTER 2017-02-17 13:20 | Inpatient (IN) | payer OTHER ==
[~2017-02-17] VITALS: Ht 172.7 cm; Wt 79.8 kg
[~2017-02-17 13:20] MED LIST changes: +NICOTINE PATCH1 EAC2 TD; +OXAYDO5 MG PO; +POLYETHYLENE GL17 GM PO; +PROTONIX40 MG PO
[2017-02-17 14:14] VITALS: BP 129/79
[2017-02-17 15:54] VITALS: BP 129/79
[2017-02-18 08:07] VITALS: BP 143/65
[2017-02-18 16:05] VITALS: BP 150/85
[2017-02-18 18:58] VITALS: BP 148/87
[2017-02-19 07:41] VITALS: BP 118/74
[2017-02-19 15:24] VITALS: BP 121/73
[2017-02-20 07:57] VITALS: BP 146/84
[2017-02-20 15:52] VITALS: BP 146/82
[2017-02-21 07:42] VITALS: BP 114/58
[2017-02-21] MEDS ORDERED: ERGOCALCIF50000 UNIT PO (09:16)
[2017-02-21] MEDS ORDERED: ANTABUSE250 MG PO (09:16)
[2017-02-21] MEDS ORDERED: SEROQUEL100 MG PO (09:16)
[2017-02-21] MEDS ORDERED: FOLIC ACID1 MG PO (09:16)
[2017-02-21] MEDS ORDERED: POLYETHYLENE GL17 GM PO (09:16)
[2017-02-21] MEDS ORDERED: DOCUSATE SODIU100 MG PO (09:16)
[2017-02-21] MEDS ORDERED: Thiamine,Vitamin B1 PO (09:16)
[2017-02-21] MEDS ORDERED: AMLODIPINE BESY10 MG PO (09:16)
[2017-02-21] MEDS ORDERED: SERTRALINE HCL100 MG PO (09:16)
[2017-02-21] MEDS ORDERED: PANTOPRAZOLE SO40 MG PO (09:16)
== END 2017-02-21 11:35 | disposition home or self-care (01) | DRG 885 ==
LOC: 1WEST 13:20
DX: F33.9 Major depressive disorder, recurrent, unspecified (principal); F10.20 Alcohol dependence, uncomplicated; K86.1 Other chronic pancreatitis; K70.10 Alcoholic hepatitis without ascites; I10 Essential (primary) hypertension; F11.10 Opioid abuse, uncomplicated
CPT/HCPCS: 97150 GO; 97165 GO

== ENCOUNTER 2017-04-09 01:07 | Emergency (ER) | payer OTHER ==
[~2017-04-09] VITALS: Ht 172.7 cm; Wt 78.9 kg
[~2017-04-09 01:07] MED LIST changes: +ANTABUSE250 MG PO; +SERTRALINE HCL100 MG PO
[2017-04-09 10:11] VITALS: BP 112/66
== END 2017-04-09 10:13 | disposition home or self-care (01) ==
LOC: EME 01:07
DX: F10.129 Alcohol abuse with intoxication, unspecified (principal); F17.200 Nicotine dependence, unspecified, uncomplicated
CPT/HCPCS: 99281; 99284